=== PATIENT | female | born 1995 | race Caucasian/White ===

== ENCOUNTER 2020-08-23 06:34 | Outpatient (CLI) | payer OTHER ==
[~2020-08-23] VITALS: Ht 165.1 cm; Wt 133.6 kg
[2020-08-23 07:18] VITALS: BP 136/65
== END 2020-08-23 08:10 | disposition home or self-care (01) ==
LOC: LDOP 06:34
PROVIDERS: ATTEND Obstetrics & Gynecology
DX: O26.893 Other specified pregnancy related conditions, third trimester (principal); R10.9 Unspecified abdominal pain; Z3A.40 40 weeks gestation of pregnancy
CPT/HCPCS: 59025

== ENCOUNTER 2020-08-25 03:20 | Inpatient (IN) | payer OTHER ==
[~2020-08-25] VITALS: Ht 165.1 cm; Wt 133.2 kg
[2020-08-25 04:01] VITALS: BP 125/72
[2020-08-25] MEDS ORDERED: LACTATED RINGERS 1,000 ML IV SCH ×2 (04:30→06:30)
[2020-08-25] MEDS ORDERED: FENTANYL PF 100 MCG/2ML IV PRN ×2 (04:30→22:00)
[2020-08-25] MEDS ORDERED: ONDANSETRON 2MG/ML, 2ML IVPush PRN ×2 (04:30→22:00)
[2020-08-25] MEDS ORDERED: TERBUTALINE 1 MG/ML, 1ML SQ PRN (04:30)
[2020-08-25] MEDS ORDERED: SODIUM CITRATE/CITRIC ACID 30 ML UDC PO PRN (04:30)
[2020-08-25] MEDS ORDERED: TERBUTALINE 1 MG/ML, 1ML IVPush PRN (04:30)
[2020-08-25] MEDS ORDERED: OXYTOCIN 30U/ 0.9% NaCL 500ML 500 ML IV PRN (04:30)
[2020-08-25] MEDS ORDERED: FENTANYL PF 100 MCG/2ML IVPush PRN (04:30)
[2020-08-25] MEDS ORDERED: CALCIUM CARBONATE 500 MG TAB.CHEW PO PRN ×2 (04:30→20:00)
[2020-08-25] MEDS ORDERED: METOCLOPRAMIDE 5 MG/ML, 2ML IVPush PRN (04:30)
[2020-08-25] MEDS ORDERED: OXYTOCIN 30U/ 0.9% NaCL 500ML 500 ML IV ONE (04:30)
[2020-08-25] MEDS ORDERED: D5%-LACTATED RINGERS 1,000 ML IV SCH (04:30)
[2020-08-25] MEDS ORDERED: LIDOCAINE 1%, 20ML ONE (04:31)
[2020-08-25] MEDS ORDERED: OXYTOCIN 30U/ 0.9% NaCL 500ML 500 ML ONE (04:31)
[2020-08-25] MEDS ORDERED: NEWBORN KIT ONE (04:31)
[2020-08-25] MEDS ORDERED: FENTANYL/BUPIV./NS/PF 250 ML EPIDCONT SCH ×2 (05:00→06:30)
[2020-08-25 05:06] LABS: BASOPHILS % (AUTO) 1 % (0-1); EOSINOPHILS % (AUTO) 0 % (1-7); LYMPHOCYTES % (AUTO) 12 % (22-44); MEAN CORPUSCULAR HEMOGLOBIN 23.6 pg (27.0-34.8); MEAN CORPUSCULAR HGB CONC 32.8 g/dL (32.4-35.8); MONOCYTES % (AUTO) 3 % (2-9); NEUTROPHILS % (AUTO) 85 % (42-75); PLATELET COUNT 354 x10^3/uL (130-400); RED BLOOD COUNT 5.16 x10^6/uL (3.82-5.3); RED CELL DISTRIBUTION WIDTH 15.8 % (9.6-15.2)
[2020-08-25] MEDS ORDERED: BUPIVACAINE 0.25% ONE (06:12)
[2020-08-25] MEDS ORDERED: LACTATED RINGERS 1,000 ML IVBOLUS PRN (06:30)
[2020-08-25] MEDS ORDERED: NALOXONE 0.4 MG/ML, 1ML IVPush PRN (06:30)
[2020-08-25] MEDS ORDERED: EPHEDRINE 50 MG/ML, 1ML IVPush PRN ×2 (06:30→22:00)
[2020-08-25] MEDS ORDERED: SODIUM CITRATE/CITRIC ACID 15 ML UDC ONE (16:38)
[2020-08-25] MEDS ORDERED: FENTANYL PF 100 MCG/2ML ONE (19:41)
[2020-08-25] MEDS ORDERED: LIDOCAINE/MPF 2%-EPI 1:200K, 20 ML ONE (19:47)
[2020-08-25] MEDS ORDERED: OXYTOCIN 10 UNITS/ML, 1ML ONE ×4 (19:54)
[2020-08-25] MEDS ORDERED: SODIUM BICARBONATE 1 MEQ/ML, 50ML VIAL ONE (19:54)
[2020-08-25] MEDS ORDERED: CEFAZOLIN 1,000 MG ONE ×3 (19:54)
[2020-08-25] MEDS ORDERED: KETOROLAC 30 MG/1 ML ONE (19:54)
[2020-08-25] MEDS ORDERED: SIMETHICONE 80 MG CHEW TAB PO PRN (20:00)
[2020-08-25] MEDS ORDERED: METOCLOPRAMIDE 5 MG/ML, 2ML IV PRN (20:00)
[2020-08-25] MEDS ORDERED: MISOPROSTOL 200 MCG TABLET PR PRN (20:00)
[2020-08-25] MEDS ORDERED: IBUPROFEN 600 MG TABLET PO PRN (20:00)
[2020-08-25] MEDS ORDERED: ACETAMINOPHEN 325 MG TABLET PO PRN ×3 (20:00→22:00)
[2020-08-25] MEDS: LACTATED RINGERS 1,000 ML IV SCH ×2 (20:00)
[2020-08-25] MEDS: OXYTOCIN 30U/ 0.9% NaCL 500ML 500 ML IV SCH (20:00)
[2020-08-25] MEDS ORDERED: DIPH,PERTUSS(ACELL),TET VAC/PF NC IM-VACC PRN (20:00)
[2020-08-25] MEDS ORDERED: MEPERIDINE/PF 100 MG/ML IVPush PRN (20:00)
[2020-08-25] MEDS ORDERED: MEASLES,MUMPS&RUBELLA VACC/PF 0.5 ML SQ-VACC PRN (20:00)
[2020-08-25] MEDS ORDERED: KETOROLAC 30 MG/1 ML IV SCH (20:00)
[2020-08-25] MEDS ORDERED: BISACODYL 10 MG SUPP PR PRN (20:00)
[2020-08-25] MEDS ORDERED: CARBOPROST TROMETHAMINE 250 MCG/ML, 1ML IM PRN (20:00)
[2020-08-25] MEDS ORDERED: METHYLERGONOVINE 0.2 MG/ML IM PRN (20:00)
[2020-08-25] MEDS ORDERED: MEPERIDINE/PF 50 MG/ML IVPush PRN (20:00)
[2020-08-25] MEDS ORDERED: ONDANSETRON 2MG/ML, 2ML IV PRN (20:00)
[2020-08-25] MEDS ORDERED: GLYCERIN ADULT SUPP PR PRN (20:00)
[2020-08-25] MEDS ORDERED: TRANEXAMIC ACID 100 MG/ML, 10ML ONE (20:52)
[2020-08-25 21:42] LABS: BASOPHILS % (AUTO) 0 % (0-1); EOSINOPHILS % (AUTO) 0 % (1-7); LYMPHOCYTES % (AUTO) 9 % (22-44); MEAN CORPUSCULAR HEMOGLOBIN 23.5 pg (27.0-34.8); MEAN CORPUSCULAR HGB CONC 32.5 g/dL (32.4-35.8); MONOCYTES % (AUTO) 3 % (2-9); NEUTROPHILS % (AUTO) 88 % (42-75); PLATELET COUNT 282 x10^3/uL (130-400); RED BLOOD COUNT 4.75 x10^6/uL (3.82-5.3); RED CELL DISTRIBUTION WIDTH 15.8 % (9.6-15.2)
[2020-08-25 21:53] LABS: ALANINE AMINOTRANSFERASE 25 U/L (12-78); ALBUMIN 2.2 g/dL (3.4-5.0); ANION GAP 9 mmol/L (5-15); CALCIUM 8.3 mg/dL (8.5-10.1); CHLORIDE 104 mmol/L (98-107)
[2020-08-25 21:55] LABS: ALKALINE PHOSPHATASE 120 U/L (45-117); BILIRUBIN,TOTAL 0.5 mg/dL (0.2-1.0)
[2020-08-25] MEDS ORDERED: HYDROmorphone 1 MG/ML, 1ML INJ IVPush PRN (22:00)
[2020-08-25] MEDS ORDERED: DIPHENHYDRAMINE 50 MG/ML, 1ML IVPush PRN (22:00)
[2020-08-25] MEDS ORDERED: OXYcodone 5 MG/5 ML ORAL.SOL UDC PO PRN (22:00)
[2020-08-25] MEDS ORDERED: LABETALOL 5MG/ML, 20ML IV PRN (22:00)
[2020-08-25] MEDS ORDERED: MEPERIDINE/PF 25MG/0.5ML IVPush PRN (22:00)
[2020-08-25] MEDS ORDERED: hydrALAzine 20 MG/ML, 1ML IV PRN (22:00)
[2020-08-25 23:14] LABS: INTERNATIONAL NORMALIZED RATIO 0.96 (0.93-1.1); PROTHROMBIN TIME 10.3 Seconds (9.6-11.5)
[2020-08-26] VITALS (9 sets, daily range): BP systolic 99–141; BP diastolic 67–85
[2020-08-26] MEDS ORDERED: OXYcodone 5 MG/5 ML ORAL.SOL UDC ONE (00:12)
[2020-08-26] MEDS ORDERED: OXYcodone 5 MG/5 ML ORAL.SOL UDC PO PRN (01:00)
[2020-08-26] MEDS ORDERED: MEPERIDINE/PF 50 MG/ML ONE (02:08)
[2020-08-26 02:48] LABS: BASOPHILS % (AUTO) 0 % (0-1); EOSINOPHILS % (AUTO) 0 % (1-7); LYMPHOCYTES % (AUTO) 11 % (22-44); MEAN CORPUSCULAR HEMOGLOBIN 23.4 pg (27.0-34.8); MEAN CORPUSCULAR HGB CONC 32.3 g/dL (32.4-35.8); MEAN PLATELET VOLUME 8.4 fL (7.4-10.4); MONOCYTES % (AUTO) 3 % (2-9); NEUTROPHILS % (AUTO) 85 % (42-75); PLATELET COUNT 238 x10^3/uL (130-400); RED BLOOD COUNT 4.73 x10^6/uL (3.82-5.3); RED CELL DISTRIBUTION WIDTH 15.7 % (9.6-15.2)
[2020-08-26 02:53] LABS: INTERNATIONAL NORMALIZED RATIO 0.94 (0.93-1.1); PROTHROMBIN TIME 10.1 Seconds (9.6-11.5)
[2020-08-26] MEDS: LACTATED RINGERS 1,000 ML IV SCH ×5 (04:00→20:00)
[2020-08-26] MEDS: OXYcodone/APAP 5/325MG TABLET PO PRN ×3 (05:25→20:55)
[2020-08-26] MEDS: OXYTOCIN 30U/ 0.9% NaCL 500ML 500 ML IV SCH ×2 (06:00→16:00)
[2020-08-26 07:50] LABS: BASOPHILS % (AUTO) 0 % (0-1); EOSINOPHILS % (AUTO) 0 % (1-7); LYMPHOCYTES % (AUTO) 10 % (22-44); MEAN CORPUSCULAR HEMOGLOBIN 23.5 pg (27.0-34.8); MEAN CORPUSCULAR HGB CONC 32.3 g/dL (32.4-35.8); MEAN PLATELET VOLUME 8.4 fL (7.4-10.4); MONOCYTES % (AUTO) 5 % (2-9); NEUTROPHILS % (AUTO) 85 % (42-75); PLATELET COUNT 269 x10^3/uL (130-400); RED BLOOD COUNT 4.72 x10^6/uL (3.82-5.3)
[2020-08-26] MEDS: KETOROLAC 30 MG/1 ML IVPush SCH ×3 (08:43→20:41)
[2020-08-26] MEDS: PRENATAL VIT/IRON/FA 1 EACH TABLET PO SCH (08:43)
[2020-08-26] MEDS: DOCUSATE 100 MG CAPSULE PO PRN ×2 (08:43→20:55)
[2020-08-27] MEDS: OXYTOCIN 30U/ 0.9% NaCL 500ML 500 ML IV SCH ×3 (02:00→22:00)
[2020-08-27] MEDS: LACTATED RINGERS 1,000 ML IV SCH ×5 (02:00→20:00)
[2020-08-27] MEDS: KETOROLAC 30 MG/1 ML IVPush SCH ×2 (02:30→02:50)
[2020-08-27] MEDS: OXYcodone/APAP 5/325MG TABLET PO PRN ×6 (02:51→22:08)
[2020-08-27] MEDS ORDERED: IBUPROFEN 600 MG TABLET ONE (03:12)
[2020-08-27] MEDS: IBUPROFEN 600 MG TABLET PO PRN ×4 (03:14→22:07)
[2020-08-27 05:57] LABS: BASOPHILS % (AUTO) 1 % (0-1); EOSINOPHILS % (AUTO) 1 % (1-7); LYMPHOCYTES % (AUTO) 16 % (22-44); MEAN CORPUSCULAR HEMOGLOBIN 23.6 pg (27.0-34.8); MEAN CORPUSCULAR HGB CONC 32.3 g/dL (32.4-35.8); MEAN PLATELET VOLUME 7.8 fL (7.4-10.4); MONOCYTES % (AUTO) 5 % (2-9); NEUTROPHILS % (AUTO) 78 % (42-75); PLATELET COUNT 251 x10^3/uL (130-400); RED BLOOD COUNT 4.29 x10^6/uL (3.82-5.3); RED CELL DISTRIBUTION WIDTH 16.3 % (9.6-15.2)
[2020-08-27 06:07] LABS: INTERNATIONAL NORMALIZED RATIO 0.95 (0.93-1.1); PROTHROMBIN TIME 10.2 Seconds (9.6-11.5)
[2020-08-27 08:00] VITALS: BP 120/80
[2020-08-27] MEDS: DOCUSATE 100 MG CAPSULE PO PRN ×2 (09:11→22:07)
[2020-08-27] MEDS: PRENATAL VIT/IRON/FA 1 EACH TABLET PO SCH (09:11)
[2020-08-27 20:00] VITALS: BP 115/76
[2020-08-28] MEDS: LACTATED RINGERS 1,000 ML IV SCH ×3 (04:00→12:00)
[2020-08-28] MEDS: IBUPROFEN 600 MG TABLET PO PRN ×2 (04:41→10:48)
[2020-08-28] MEDS: OXYcodone/APAP 5/325MG TABLET PO PRN ×2 (04:43→10:48)
[2020-08-28 05:25] LABS: BASOPHILS % (AUTO) 1 % (0-1); EOSINOPHILS % (AUTO) 2 % (1-7); LYMPHOCYTES % (AUTO) 17 % (22-44); MEAN CORPUSCULAR HEMOGLOBIN 23.5 pg (27.0-34.8); MEAN PLATELET VOLUME 7.6 fL (7.4-10.4); MONOCYTES % (AUTO) 4 % (2-9); NEUTROPHILS % (AUTO) 76 % (42-75); PLATELET COUNT 325 x10^3/uL (130-400); RED BLOOD COUNT 4.58 x10^6/uL (3.82-5.3); RED CELL DISTRIBUTION WIDTH 16.2 % (9.6-15.2)
[2020-08-28] MEDS ORDERED: IBUP-1222 PO (07:05)
[2020-08-28] MEDS ORDERED: DOCU-131 PO (07:05)
[2020-08-28] MEDS ORDERED: OXYC1TAB14 PO (07:05)
[2020-08-28] MEDS: OXYTOCIN 30U/ 0.9% NaCL 500ML 500 ML IV SCH (07:23)
[2020-08-28] MEDS: DOCUSATE 100 MG CAPSULE PO PRN (07:41)
[2020-08-28] MEDS: PRENATAL VIT/IRON/FA 1 EACH TABLET PO SCH (07:41)
[2020-08-28 07:49] VITALS: BP 125/81
== END 2020-08-28 13:31 | disposition home or self-care (01) | DRG 787 ==
LOC: LDOP 03:20 → LDIP 04:39 → 2NE 23:31 → 2NW 08-26 06:35
PROVIDERS: ADMIT Obstetrics & Gynecology; ATTEND Obstetrics & Gynecology
PROC: 10D00Z1 Extraction of Products of Conception, Low, Open Approach (ICD-10-PCS; principal; 2020-08-25)
DX: O34.211 Maternal care for low transverse scar from previous cesarean delivery (principal); O63.9 Long labor, unspecified; O36.63X0 Maternal care for excessive fetal growth, third trimester, not applicable or unspecified; O77.0 Labor and delivery complicated by meconium in amniotic fluid; Z37.0 Single live birth; Z3A.40 40 weeks gestation of pregnancy; Z80.3 Family history of malignant neoplasm of breast; Z82.3 Family history of stroke; Z83.3 Family history of diabetes mellitus; Z87.891 Personal history of nicotine dependence; Z20.822 Contact with and (suspected) exposure to COVID-19
CPT/HCPCS: 36415; 80053; 85025; 85384; 85610; 85730; 86592; 86850; 86900; 87635; 89060; G0378; J0690; J1885; J2405; J3010; J2175; J2590; Q0114